=== PATIENT | male | born 1985 | race Caucasian/White ===

== ENCOUNTER 2016-10-06 11:25 | Observation (INO) | payer BC ==
[2016-10-06] MEDS ORDERED: Ondansetron 4 MG/2 ML SDV IVPUSH ONE (11:41)
[2016-10-06] MEDS ORDERED: Sodium Chloride 0.9% 1,000 ML IV ONE (11:41)
--- NOTE | 2016-10-06 12:22 | EDM.PDOC ---
ED HPI GENERAL MEDICAL PROBLEM - General Chief Complaint: Gastrointestinal Problem Stated Complaint: ABDOMINAL PAIN Time Seen by Provider: 10/06/16 12:07 Source of Information: Reports: Patient History Limitations: Reports: No Limitations - History of Present Illness INITIAL COMMENTS - FREE TEXT/NARRATIVE: History of present illness: [31-year-old male presents with complaints of abdominal tenderness and diarrhea for the last 3 days. Patient states he was seen in clinic today and they indicated they could not help him and that he needed to come here to be evaluated. Patient also states upon questioning that he does drink every weekend approximately 2 cases of beer and he has been doing them for 10 years.] Review of systems: As per history of present illness and below otherwise all systems reviewed and negative. Past medical history: As per history of present illness and as reviewed below otherwise noncontributory. Surgical history: As per history of present illness and as reviewed below otherwise noncontributory. Social history: No reported history of drug or alcohol abuse. Family history: As per history of present illness and as reviewed below otherwise noncontributory. Physical exam: HEENT: Atraumatic, normocephalic, pupils reactive, negative for conjunctival pallor or scleral icterus, mucous membranes moist, throat clear, neck supple, nontender, trachea midline. Lungs: Clear to auscultation, breath sounds equal bilaterally, chest nontender. Heart: S1S2, regular, negative for clicks, rubs, or JVD. Abdomen: Soft, nondistended, diffuse nonspecific tenderness throughout all recent abdomen Negative for masses or hepatosplenomegaly. Negative for costovertebral tenderness. Pelvis: Stable nontender. Genitourinary: Deferred. Rectal: Deferred. Extremities: Atraumatic, negative for cords or calf pain. Neurovascular unremarkable. Neuro: Awake, alert, oriented. Cranial nerves II through XII unremarkable. Cerebellum unremarkable. Motor and sensory unremarkable throughout. Exam nonfocal. Patient gave history clearly, was non tremulous, has stable vital signs without tachycardia and denied ever having a history of any adverse reaction during the week when he didn't drink. Patient acknowledges binge drinking only on the weekends and sometimes to the level that he will black out. Patient indicates that he has having diarrhea hourly and that it is quite painful and he bears down to evacuate. Patient provided a sample while here in the ER and it was primarily moon blood. Rectal exam performed no obvious external hemorrhoids on visualization and no hemorrhoids appreciated on palpation. Due to patient's continued stooling of blood discussed the case with Dr. Kruger and she indicated that since he is H&H was stable and he was hemostatically stable she would consult on him but to discuss admission to the hospitalist service. Dr. Deleon called and he accepted patient to his service. Diagnostics: [CBC, CMP, type and screen, culture stool] Therapeutics: [IV fluid] Impression: [GI bleed] Plan: [Admit] Definitive disposition and diagnosis as appropriate pending reevaluation and review of above. Bilateral Lower Abdomen Pain Score (Numeric/FACES): 8 - Related Data Allergies Allergy/AdvReac Type Severity Reaction Status Date / Time No Known Allergies Allergy Verified 10/06/16 11:58 Home Meds: Home Meds . [No Known Home Meds] 10/06/16 [History] ED ROS GENERAL - Review of Systems Review Of Systems: See Below (See history of present illness) ED EXAM, GI/ABD - Physical Exam Exam: See Below (See history of present illness) Course - Vital Signs Last Recorded V/S: Last Vital Signs Temp 37.1 C 10/06/16 14:10 Pulse 89 10/06/16 14:10 Resp 18 10/06/16 13:01 BP 118/56 L 10/06/16 14:10 Pulse Ox 93 L 10/06/16 14:10 - Orders/Labs/Meds Orders: Active Orders 24 hr Category Date Time Status CULTURE STOOL + CAMPY+SHIGATOX [RM] Stat Lab 10/06/16 11:45 Received Labs: Laboratory Tests 10/06/16 10/06/16 10/06/16 Range/Units 11:51 11:51 11:51 WBC 11.44 H (4.0-11.0) K/uL RBC 5.57 (4.50-5.90) M/uL Hgb 16.9 (13.0-17.0) g/dL Hct 48.2 (38.0-50.0) % MCV 86.5 (80.0-98.0) fL MCH 30.3 (27.0-32.0) pg MCHC 35.1 (31.0-37.0) g/dL RDW Std Deviation 41.8 (28.0-62.0) fl RDW Coeff of Saad 13 (11.0-15.0) % Plt Count 200 (150-400) K/uL MPV 10.30 (7.40-12.00) fL Neut % (Auto) 81.8 H (48.0-80.0) % Lymph % (Auto) 10.2 L (16.0-40.0) % Ross % (Auto) 7.7 (0.0-15.0) % Eos % (Auto) 0.0 (0.0-7.0) % Baso % (Auto) 0.3 (0.0-1.5) % Neut # (Auto) 9.4 H (1.4-5.7) K/uL Lymph # (Auto) 1.2 (0.6-2.4) K/uL Ross # (Auto) 0.9 H (0.0-0.8) K/uL Eos # (Auto) 0.0 (0.0-0.7) K/uL Baso # (Auto) 0.0 (0.0-0.1) K/uL Nucleated RBC % 0.0 /100WBC Nucleated RBCs # 0 K/uL Sodium 133 L (136-146) mmol/L Potassium 3.9 (3.5-5.1) mmol/L Chloride 99 (98-110) mmol/L Carbon Dioxide 21 (21-31) mmol/L BUN 8 (6.0-23.0) mg/dL Creatinine 1.0 (0.6-1.5) mg/dL Est Cr Clr Drug Dosing TNP Estimated GFR (MDRD) > 60.0 ml/min Glucose 122 H (60-110) mg/dL Calcium 9.1 (8.8-10.8) mg/dL Total Bilirubin 0.5 (0.1-1.5) mg/dL AST 22 (5-40) IU/L ALT 26 (8-54) IU/L Alkaline Phosphatase 62 (40-150) Total Protein 7.6 (6.0-8.0) g/dL Albumin 4.5 (3.5-5.0) g/dL Globulin 3.1 (2.0-3.5) g/dL Albumin/Globulin Ratio 1.5 (1.3-2.8) Amylase (10-90) U/L Lipase (7-80) U/L Blood Type A POSITIVE Antibody Screen NEGATIVE 10/06/16 Range/Units 11:51 WBC (4.0-11.0) K/uL RBC (4.50-5.90) M/uL Hgb (13.0-17.0) g/dL Hct (38.0-50.0) % MCV (80.0-98.0) fL MCH (27.0-32.0) pg MCHC (31.0-37.0) g/dL RDW Std Deviation (28.0-62.0) fl RDW Coeff of Saad (11.0-15.0) % Plt Count (150-400) K/uL MPV (7.40-12.00) fL Neut % (Auto) (48.0-80.0) % Lymph % (Auto) (16.0-40.0) % Ross % (Auto) (0.0-15.0) % Eos % (Auto) (0.0-7.0) % Baso % (Auto) (0.0-1.5) % Neut # (Auto) (1.4-5.7) K/uL Lymph # (Auto) (0.6-2.4) K/uL Ross # (Auto) (0.0-0.8) K/uL Eos # (Auto) (0.0-0.7) K/uL Baso # (Auto) (0.0-0.1) K/uL Nucleated RBC % /100WBC Nucleated RBCs # K/uL Sodium (136-146) mmol/L Potassium (3.5-5.1) mmol/L Chloride (98-110) mmol/L Carbon Dioxide (21-31) mmol/L BUN (6.0-23.0) mg/dL Creatinine (0.6-1.5) mg/dL Est Cr Clr Drug Dosing Estimated GFR (MDRD) ml/min Glucose (60-110) mg/dL Calcium (8.8-10.8) mg/dL Total Bilirubin (0.1-1.5) mg/dL AST (5-40) IU/L ALT (8-54) IU/L Alkaline Phosphatase (40-150) Total Protein (6.0-8.0) g/dL Albumin (3.5-5.0) g/dL Globulin (2.0-3.5) g/dL Albumin/Globulin Ratio (1.3-2.8) Amylase 34 (10-90) U/L Lipase < 8 (7-80) U/L Blood Type Antibody Screen Meds: Medications Discontinued Medications Generic Name Dose Route Start Last Admin Trade Name Orenq PRN Reason Stop Dose Admin Sodium Chloride 1,000 mls @ 999 mls/hr 10/06/16 11:41 10/06/16 12:15 Normal Saline IV 10/06/16 12:41 999 mls/hr STAT ONE Administration Iopamidol 100 ml 10/06/16 13:19 10/06/16 13:20 Isovue Multipack-370 (76%) IVPUSH 10/06/16 13:20 100 ml ONETIME STA Administration Ondansetron HCl 8 mg 10/06/16 11:41 10/06/16 12:16 Zofran IVPUSH 10/06/16 11:42 8 mg ONETIME ONE Administration Departure - Departure Time of Disposition: 15:19 Disposition: Admitted As Inpatient 66 Condition: Good Clinical Impression: Rectal bleed - Discharge Information Referrals: PCP,None [Primary Care Provider] - Forms: ED Department Discharge - My Orders Last 24 Hours: My Active Orders 10/06/16 11:45 CULTURE STOOL + CAMPY+SHIGATOX [RM] Stat - Assessment/Plan Last 24 Hours: My Active Orders 10/06/16 11:45 CULTURE STOOL + CAMPY+SHIGATOX [RM] Stat
[2016-10-06 12:27] LABS: CHLORIDE,CL 99 mmol/L (98-110); SODIUM,NA 133 mmol/L (136-146)
[2016-10-06] MEDS ORDERED: Iopamidol 755 MG/ML 500 ML Multipack Bottle IVPUSH STA (13:19)
--- NOTE | 2016-10-06 14:01 | CT ---
CT of the abdomen and pelvis with contrast. HISTORY: Pain TECHNIQUE: Axial CT images were obtained of the abdomen and pelvis following administration of 100 m L of Isovue-370 in the right antecubital fossa without complication. Coronal and sagittal reconstruc tions obtained. FINDINGS: There is a centrally calcified granuloma within the left lung base. No pleural effusion. There is a 1.4 cm hypodensity within the dome of the liver within eccentric hyperdense component lik nori representing peripheral enhancement. There is also a second tiny hypodensity within the left hep atic lobe measuring 6 mm. Intrarenal glands, spleen, and pancreas appear normal. The gallbladder is unremarkable. Nonpathologically enlarged retroperitoneal lymph nodes noted. The kidneys enhance and function symmetrically without evidence of obstructive uropathy. The large a nd small bowel appear normal in caliber without evidence of obstruction. There is possible mild rect al wall thickening with a trace free pelvic fluid. The urinary bladder appears normal. The appendix appears grossly unremarkable. No bulky pelvic lymphadenopathy. No suspicious osseous abnormalities identified. IMPRESSION: 1. Possible mild rectal wall thickening with a trace free pelvic fluid. 2. Otherwise no acute findings within the abdomen or pelvis. 3. Calcified granuloma within the left lung base.
[2016-10-06] MEDS ORDERED: Ondansetron 4 MG/2 ML SDV IVPUSH PRN (15:44)
--- NOTE | 2016-10-06 16:13 | PCM.HP ---
H&P History of Present Illness - General Date of Service: 10/06/16 Admit Problem/Dx: Rectal bleeding and abdominal pain Source of Information: Patient History Limitations: Reports: No Limitations - History of Present Illness Initial Comments - Free Text/Narative: This 31 year old otherwise helathy male, presented to the ED with complaints of lower abdominal and rectal pain with bloody stools. He reports on Tuesday evening he ate [employer] around 7pm and by 9 pm he had lower abdominal pain and diarrhea. He reports this continued and progressively worsened until today when the bloody stools started. He feels like he constantly needing to have BMs and feels as though his anus and rectum are very swollen. he has no relieving or aggravating factors. He denies recent bowel habit changes. He denies inserting any foreign objects into his rectum. No family history of rectal or colon cancers that is he aware of, no history of IBS, IBS diseases either. He has never had this issue before. He denies chest pain, SOB or palpitations, no urinary symptoms or fevers at home. He does heavily binge drink on weekends, anywhere from 18-25 beers daily. He smokes 1 ppk and denies recreational drug use. He has not recently been outside of the [place] traveling, no antibiotics use and no questionable food ingested. In the ED, WBC 11,440 Hgb 16.9, Na 133, VS stable HR 80-90 BP 120-140/50-80. Campylobacter negative, cdiff pending. CT reported possible mild rectal wall thickening with trace free pelvic fluid, otherwise no other acute findings with the abdomen or pelvis. Bilateral Lower Abdomen Pain Score (Numeric/FACES): 8 - Related Data Allergies/Adverse Reactions: Allergies Allergy/AdvReac Type Severity Reaction Status Date / Time No Known Allergies Allergy Verified 10/06/16 11:58 Home Medications: Home Meds . [No Known Home Meds] 10/06/16 [History] Past Medical History Cardiovascular History: Reports: None. Denies: Blood Clots/VTE/DVT, High Cholesterol, Hypertension, [place] Respiratory History: Reports: None. Denies: Asthma, COPD, PE Gastrointestinal History: Reports: None. Denies: Gastritis, GI Bleed, Hemorrhoids, Inflammatory Bowel Disease, Irritable Bowel Syndrome Genitourinary History: Reports: None. Denies: Chronic Renal Insuffiency Musculoskeletal History: Reports: None Neurological History: Reports: None. Denies: CVA, Headaches, Chronic, TIA Psychiatric History: Reports: None Endocrine/Metabolic History: Reports: None. 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) Oncologic (Cancer) History: Reports: None Dermatologic History: Reports: None - Infectious Disease History Infectious Disease History: Reports: None - Past Surgical History HEENT Surgical History: Reports: Other (See Below) Other HEENT Surgeries/Procedures: wisdom teeth GI Surgical History: Reports: None Endocrine Surgical History: Reports: Other (See Below) Other Endocrine Surgeries/Procedures: had numerous lymph nodes removed surgically Neurological Surgical History: Reports: None Social & Family History - Family History Family Medical History: Noncontributory - Tobacco Use Smoking Status *Q: Current Every Day Smoker Years of Tobacco use: 10 Packs/Tins Daily: 1 - Alcohol Use Alcohol Use History: Yes Days Per Week of Alcohol Use: 3 Number of Drinks Per Day: 10 Total Drinks Per Week: 30 Alcohol Use Frequency: Binges - Recreational Drug Use Recreational Drug Use: No H&P Review of Systems - Review of Systems: Review Of Systems: See Below General: Reports: No Symptoms. Denies: Fever, Chills, Malaise HEENT: Reports: No Symptoms. Denies: Headaches, Sinus Congestion, Sore Throat Pulmonary: Reports: No Symptoms. Denies: Shortness of Breath, Pleuritic Chest Pain, Cough, Sputum Cardiovascular: Reports: No Symptoms. Denies: Chest Pain, Palpitations, Dyspnea on Exertion, Edema Gastrointestinal: Reports: Abdominal Pain (lower abdomen), Bloody Stool, Diarrhea, Melena, Nausea, Other (rectal pain) Genitourinary: Reports: No Symptoms. Denies: Dysuria, Frequency, Burning, Pain Musculoskeletal: Reports: No Symptoms Skin: Reports: No Symptoms Psychiatric: Reports: No Symptoms Neurological: Reports: No Symptoms Hematologic/Lymphatic: Reports: No Symptoms Immunologic: Reports: No Symptoms Exam - Exam Exam: See Below - Vital Signs Vital Signs: Last Vital Signs Temp 97.1 F 10/06/16 15:43 Pulse 85 10/06/16 15:43 Resp 18 10/06/16 15:43 BP 155/80 H 10/06/16 15:43 Pulse Ox 96 10/06/16 15:43 Weight: 70.307 kg - Exam General: Alert, Oriented, Cooperative HEENT: Conjunctiva Clear. No: Mucosa Moist & [place] (slightly dry in appearance) Neck: Supple, Trachea Midline, 2 Lungs: Clear to Auscultation, Normal Respiratory Effort Cardiovascular: Regular Rate, Regular Rhythm, Normal S1, Normal S2 Abdomen: Normal Bowel Sounds, Tenderness (lower abdomen bilaterally). No: Distention, Guarding, Rigidity, Mass Rectal (Males) Exam: Bloody Stool, Heme + Stool, Tenderness. No: Hemorrhoids, Mass, Rectal Fissure Extremities: Normal Inspection, Normal Pulses Neuro Extensive - Mental Status: Alert, Oriented x3 Neuro Extensive - Motor, Sensory, Reflexes: CN II-XII Intact Psychiatric: Alert, Normal Affect, Normal Mood - Patient Data Result Diagrams: 10/06/16 11:51 10/06/16 11:51 *Q Meaningful Use (ADM) - VTE *Q VTE Criteria *Q: - VTE Risk Assess *Q Each Risk Factor Represents 1 Point: None Total Score 1 Point Risk Factors: 0 Each Risk Factor Represents 2 Points: None Total Score 2 Point Risk Factors: 0 Each Risk Factor Represents 3 Points: None Total Score 3 Point Risk Factors: 0 Each Risk Factor Represents 5 Points: None Total Score 5 Point Risk Factors: 0 Venous Thromboembolism Risk Factor Score *Q: 0 - Stroke *Q Stroke Criteria *Q: - AMI *Q AMI Criteria *Q: - Problem List (1) Rectal bleed SNOMED Code(s): 26403327 ICD Code: K62.5 - HEMORRHAGE OF ANUS AND RECTUM Status: Acute Current Visit: Yes (2) Proctitis SNOMED Code(s): 0642379 ICD Code: K62.89 - OTHER SPECIFIED DISEASES OF ANUS AND RECTUM Status: Acute Current Visit: Yes Problem List Initiated/Reviewed/Updated: Yes Orders Last 24hrs: Active Orders 24 hr Category Date Time Status Antiembolic Devices [RC] PER UNIT ROUTINE Care 10/06/16 15:44 Active Fecal Occult Blood Collection [RC] ASDIRECTED Care 10/06/16 15:44 Active Intake and Output [RC] QSHIFT Care 10/06/16 15:43 Active Oxygen Therapy [RC] PRN Care 10/06/16 15:43 Active Up With Assistance [RC] ASDIRECTED Care 10/06/16 15:43 Active VTE/DVT Education [RC] PER UNIT ROUTINE Care 10/06/16 15:43 Active Vital Signs [RC] Q4H Care 10/06/16 15:43 Active Nothing per Oral Now Diet [DIET] Diet 10/06/16 Dinner Active BASIC METABOLIC PANEL,BMP [CHEM] AM Lab 10/07/16 05:11 Ordered CBC WITH AUTO DIFF [HEME] AM Lab 10/07/16 05:11 Ordered CBC WITH AUTO DIFF [HEME] AM Lab 10/08/16 05:11 Ordered CBC WITH AUTO DIFF [HEME] AM Lab 10/09/16 05:11 Ordered CDIFF TOX A+B [OP] Routine Lab 10/06/16 11:45 Received OCCULT BLOOD DIAGNOSTIC [OP] Routine Lab 10/06/16 11:45 Received Morphine Med 10/06/16 15:43 Active 2 mg IVPUSH Q2H PRN Ondansetron [Zofran] Med 10/06/16 15:44 Active 4 mg IVPUSH Q4H PRN Sodium Chloride 0.9% [Normal Saline] 1,000 ml Med 10/06/16 15:45 Active IV ASDIRECTED Sequential Compression Device [OM.PC] Per Unit Routine Oth 10/06/16 15:43 Ordered Resuscitation Status Routine Resus Stat 10/06/16 15:43 Ordered Medication Orders Sodium Chloride (Normal Saline) 1,000 mls @ 125 mls/hr IV ASDIRECTED LARISA Morphine Sulfate (Morphine) 2 mg IVPUSH Q2H PRN PRN Reason: Pain (severe 7-10) Ondansetron HCl (Zofran) 4 mg IVPUSH Q4H PRN PRN Reason: Nausea Assessment/Plan Comment:: This 31 year old male admitted with rectal bleeding and pain 1. Rectal bleeding and pain: Stool studies pending, campylobacter and Cdiff negative. Heme positive. Consult to Dr. Kruger, I appreciate her assistance. Consider proctitis. Will start Mesalamine rectal enema tonight for inflammation and monitor. Monitor HH in am as well as progress overnight with urgency and frequency of stools and bleeding. Consider flare of undiagnosed ulcerative colitis or Crohn's. IVFs overnight. Dr. Kruger recommends Zosyn in light of possible infectious inflammation. VTE prophylaxis: SCDs Dispo: pending improvement.
[2016-10-06] MEDS: Sodium Chloride 0.9% 1,000 ML IV SCH (16:32)
[2016-10-06] MEDS: Morphine 2 MG/ML Syringe IVPUSH PRN ×3 (16:33→23:10)
--- NOTE | 2016-10-06 17:34 | PCM.CONS ---
H&P History of Present Illness - General Date of Service: 10/06/16 Admit Problem/Dx: Rectal bleeding and abdominal pain Source of Information: Patient History Limitations: Reports: No Limitations - History of Present Illness Initial Comments - Free Text/Narative: Patient is a 31 yo male who developed diarrhea and tenesmus 2 days ago. This continued and became more bloody. The patient started having multiple bloody bowel movements today and presented to the ER. He denies infectious contacts, anal sex, or previous episodes of bloody bowel movements. He denies fevers, chills, nausea, vomiting, abdominal pain, changes in weight, lymphadenopathy, changes in urination, or dizziness. He denies any family history of autoimmune diseases, colon cancer or inflammatory bowel disease. Bilateral Lower Abdomen Pain Score (Numeric/FACES): 8 - Related Data Allergies/Adverse Reactions: Allergies Allergy/AdvReac Type Severity Reaction Status Date / Time No Known Allergies Allergy Verified 10/06/16 11:58 Home Medications: Home Meds . 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) Oncologic (Cancer) History: Reports: None Dermatologic History: Reports: None - Infectious Disease History Infectious Disease History: Reports: None - Past Surgical History HEENT Surgical History: Reports: Other (See Below) Other HEENT Surgeries/Procedures: wisdom teeth GI Surgical History: Reports: None Endocrine Surgical History: Reports: Other (See Below) Other Endocrine Surgeries/Procedures: had numerous lymph nodes removed surgically Neurological Surgical History: Reports: None Other Dermatological Surgeries/Procedures: Lipoma removal Social & Family History - Family History Family Medical History: Noncontributory - Tobacco Use Smoking Status *Q: Current Every Day Smoker Years of Tobacco use: 10 Packs/Tins Daily: 1 - Alcohol Use Days Per Week of Alcohol Use: 3 Number of Drinks Per Day: 10 Total Drinks Per Week: 30 - Recreational Drug Use Recreational Drug Use: No H&P Review of Systems - Review of Systems: Review Of Systems: See Below General: Reports: Weakness, Fatigue. Denies: Fever, Chills, Decreased Appetite , Weight Loss, Weight Gain HEENT: Reports: No Symptoms Pulmonary: Reports: No Symptoms Cardiovascular: Reports: No Symptoms Gastrointestinal: Reports: Bloody Stool, Diarrhea, Hematochezia. Denies: Abdominal Pain, Anorexia, Constipation, Decreased Appetite, Distension, Flatus, Nausea, Stool Incontinence, Vomiting Genitourinary: Reports: No Symptoms Musculoskeletal: Reports: No Symptoms Skin: Reports: Lumps (lipomas (multiple)) Psychiatric: Reports: No Symptoms Neurological: Reports: No Symptoms Hematologic/Lymphatic: Reports: No Symptoms Exam - Exam Exam: See Below - Vital Signs Vital Signs: Last Vital Signs Temp 37.2 C 10/06/16 16:00 Pulse 94 10/06/16 16:00 Resp 18 10/06/16 16:00 BP 128/67 10/06/16 16:00 Pulse Ox 94 L 10/06/16 17:18 Weight: 69.57 kg - Exam General: Alert, Oriented HEENT: Conjunctiva Clear, EACs Clear, Mucosa Moist & [place], Pupils Equal, Pupils Reactive Neck: Supple Lungs: Clear to Auscultation, Normal Respiratory Effort Cardiovascular: Regular Rate, Regular Rhythm Abdomen: Soft. No: Distention, Guarding, Rigidity, Rebound, Tenderness Rectal (Males) Exam: Normal Rectal Tone, Prostate Normal, Bloody Stool, Tenderness. No: Hemorrhoids, Mass, Perirectal Abscess, Rectal Fissure Back Exam: Normal Inspection Extremities: Normal Inspection Skin: Warm, Dry, Intact Neuro Extensive - Mental Status: Alert, Oriented x3 Psychiatric: Alert, Normal Affect, Normal Mood - Patient Data Result Diagrams: 10/06/16 11:51 10/06/16 11:51 Consult PN Assessment/Plan (1) Proctitis SNOMED Code(s): 4961624 Code(s): K62.89 - OTHER SPECIFIED DISEASES OF ANUS AND RECTUM Current Visit : Yes (2) Rectal bleed SNOMED Code(s): 87959114 Code(s): K62.5 - HEMORRHAGE OF ANUS AND RECTUM Current Visit: Yes Problem List Initiated/Reviewed/Updated: Yes Plan: The patient has proctitis. The etiology is unknown. Possible causes include infectious or inflammatory. Patient will be started on zosyn to cover any infectious causes. Will await stool cultures. Will start 5-ASA enemas for possible inflammatory cause. Ok for patient to eat at this point in time. Continue with IVF resuscitation. If heme/hct stable and WBC decreased in the morning can be discharged. If no improvement will plan on in house sigmoidoscopy
[2016-10-06] MEDS: Piperacillin/Tazobactam 3.375 GM in Sodium Chloride 0.9% 50 ML IV SCH ×2 (18:00→23:06)
[2016-10-06] MEDS: oxyCODONE 5 MG Tab PO PRN ×2 (19:06→23:07)
[2016-10-06] MEDS ORDERED: Mesalamine Rectal Enema Susp 4 GM/60 ML Bottle RECTAL SCH (21:00)
[2016-10-06] MEDS ORDERED: CANASA RECTAL SCH (21:00)
[2016-10-07] MEDS: Sodium Chloride 0.9% 1,000 ML IV SCH ×3 (01:50→21:47)
[2016-10-07] MEDS: oxyCODONE 5 MG Tab PO PRN ×5 (04:28→22:04)
[2016-10-07] MEDS: Piperacillin/Tazobactam 3.375 GM in Sodium Chloride 0.9% 50 ML IV SCH ×4 (04:39→23:16)
[2016-10-07 05:20] LABS: CHLORIDE,CL 104 mmol/L (98-110); SODIUM,NA 135 mmol/L (136-146)
[2016-10-07] MEDS ORDERED: CANASA SCH (09:10)
--- NOTE | 2016-10-07 09:21 | PCM.PN ---
- General Info Date of Service: 10/07/16 Admission Dx/Problem (Free Text): Rectal bleeding and abdominal pain Subjective Update: Patient in bed, just returned from the bathroom, continues to have bloody bowel movements. Pain is controlled with medication, but once medication wears off he has severe rectal pain and lower abdominal pain. He denies subjective fevers, chest pain or SOB. Mother is at bedside and updated on treatment plan. Functional Status: Reports: pain controlled, tolerating diet, ambulating, urinating - Review of Systems General: Reports: No Symptoms. Denies: Fever, Weakness, Fatigue Pulmonary: Reports: no symptoms. Denies: shortness of breath, cough, sputum Cardiovascular: Reports: No Symptoms. Denies: Chest Pain, Palpitations, Edema Gastrointestinal: Reports: Abdominal pain (lower abdomen into pelvis), Diarrhea (with bloody bowel movements.). Denies: Nausea, Vomiting Genitourinary: Reports: no symptoms. Denies: dysuria, frequency, burning Musculoskeletal: Reports: no symptoms Skin: Reports: no symptoms Neurological: Reports: No Symptoms Psychiatric: Reports: no symptoms - Patient Data Vitals - most recent: Last Vital Signs Temp 97.9 F 10/07/16 07:58 Pulse 71 10/07/16 07:58 Resp 22 H 10/07/16 07:58 BP 131/65 10/07/16 07:58 Pulse Ox 94 L 10/07/16 07:58 Weight - most recent: 69.57 kg I&O - last 24 hours: Intake & Output 10/06/16 10/07/16 10/07/16 22:59 06:59 14:59 Intake Total 250 2600 Balance 250 2600 Lab Results last 24 hrs: Laboratory Results - last 24 hr 10/07/16 10/07/16 Range/Units 04:23 04:23 WBC 8.28 (4.0-11.0) K/uL RBC 5.24 (4.50-5.90) M/uL Hgb 15.4 (13.0-17.0) g/dL Hct 45.7 (38.0-50.0) % MCV 87.2 (80.0-98.0) fL MCH 29.4 (27.0-32.0) pg MCHC 33.7 (31.0-37.0) g/dL RDW Std Deviation 42.3 (28.0-62.0) fl RDW Coeff of Saad 13 (11.0-15.0) % Plt Count 186 (150-400) K/uL MPV 10.80 (7.40-12.00) fL Neut % (Auto) 68.7 (48.0-80.0) % Lymph % (Auto) 16.5 (16.0-40.0) % [place] % (Auto) 13.8 (0.0-15.0) % Eos % (Auto) 0.6 (0.0-7.0) % Baso % (Auto) 0.4 (0.0-1.5) % Neut # (Auto) 5.7 (1.4-5.7) K/uL Lymph # (Auto) 1.4 (0.6-2.4) K/uL [place] # (Auto) 1.1 H (0.0-0.8) K/uL Eos # (Auto) 0.1 (0.0-0.7) K/uL Baso # (Auto) 0.0 (0.0-0.1) K/uL Nucleated RBC % 1.0 /100WBC Nucleated RBCs # 0 K/uL Sodium 135 L (136-146) mmol/L Potassium 4.2 (3.5-5.1) mmol/L Chloride 104 (98-110) mmol/L Carbon Dioxide 20 L (21-31) mmol/L BUN 9 (6.0-23.0) mg/dL Creatinine 0.9 (0.6-1.5) mg/dL Est Cr Clr Drug Dosing 117.02 mL/min Estimated GFR (MDRD) > 60.0 ml/min Glucose 113 H (60-110) mg/dL Calcium 8.5 L (8.8-10.8) mg/dL Med Orders - Current: Current Medications Bisacodyl (Dulcolax) 20 mg PO ONETIME ONE Stop: 10/08/16 13:01 Sodium Chloride (Normal Saline) 1,000 mls @ 125 mls/hr IV ASDIRECTED LARISA Last Admin: 10/07/16 01:50 Dose: 125 mls/hr Piperacillin Sod/Tazobactam (Sod 3.375 gm/ Sodium Chloride) 50 mls @ 100 mls/ hr IV Q6H [facility] Last Admin: 10/07/16 04:39 Dose: 100 mls/hr Morphine Sulfate (Morphine) 2 mg IVPUSH Q2H PRN PRN Reason: Pain (severe 7-10) Last Admin: 10/06/16 23:10 Dose: 2 mg Canasa (Mesalamine (Suppository) 1000mg) 1 each .XX BEDTIME L[facility]ISA Ondansetron HCl (Zofran) 4 mg IVPUSH Q4H PRN PRN Reason: Nausea Last Admin: 10/06/16 20:37 Dose: 4 mg Oxycodone HCl (Oxycodone) 10 mg PO Q4H PRN PRN Reason: Pain Last Admin: 10/07/16 04:28 Dose: 10 mg Polyethylene Glycol (Miralax) 119 gm PO ONETIME ONE Stop: 10/07/16 18:01 Polyethylene Glycol (Miralax) 119 gm PO ONETIME ONE Stop: 10/08/16 15:01 Discontinued Medications Sodium Chloride (Normal Saline) 1,000 mls @ 999 mls/hr IV STAT ONE Stop: 10/06/16 12:41 Last Admin: 10/06/16 12:15 Dose: 999 mls/hr Iopamidol (Isovue Multipack-370 (76%)) 100 ml IVPUSH ONETIME STA Stop: 10/06/16 13:20 Last Admin: 10/06/16 13:20 Dose: 100 ml Mesalamine (Rowasa) 4 gm RECTAL BEDTIME LARISA Ondansetron HCl (Zofran) 8 mg IVPUSH ONETIME ONE Stop: 10/06/16 11:42 Last Admin: 10/06/16 12:16 Dose: 8 mg Oxycodone HCl (Oxycodone) 5 mg PO Q4H PRN PRN Reason: Pain Last Admin: 10/06/16 23:07 Dose: 5 mg Canasa (Mesalamine (Suppository) 1000mg) 1 each RECTAL BEDTIME LARISA Last Admin: 10/06/16 21:25 Dose: 1 each - Exam General: alert, oriented, cooperative, no acute distress Lungs: Clear to auscultation, Normal respiratory effort Cardiovascular: Regular Rate, Regular Rhythm Abdomen: bowel sounds present, soft, tenderness (lower abdomen bilaterally). No : rigidity, rebound, distension Extremities: no edema, normal pulses Psy/Mental Status: alert, normal affect, normal mood - Problem List & Annotations (1) Rectal bleed SNOMED Code(s): 93104708 Code(s): K62.5 - HEMORRHAGE OF ANUS AND RECTUM Status: Acute Current Visit: Yes (2) Proctitis SNOMED Code(s): 8169783 Code(s): K62.89 - OTHER SPECIFIED DISEASES OF ANUS AND RECTUM Status: Acute Current Visit: Yes - Problem List Review Problem List Initiated/Reviewed/Updated: Yes - My Orders Last 24 Hours: My Active Orders 10/06/16 15:43 Intake and Output [RC] Q12H Oxygen Therapy [RC] PRN Up With Assistance [RC] ASDIRECTED VTE/DVT Education [RC] PER UNIT ROUTINE Vital Signs [RC] Q4H Morphine 2 mg IVPUSH Q2H PRN Sequential Compression Device [OM.PC] Per Unit Routine Resuscitation Status Routine 10/06/16 15:44 Antiembolic Devices [RC] PER UNIT ROUTINE Ondansetron [Zofran] 4 mg IVPUSH Q4H PRN 10/06/16 15:45 Sodium Chloride 0.9% [Normal Saline] 1,000 ml IV ASDIRECTED 10/06/16 17:00 Piperacillin/Tazobactam [Piperacil-Tazobact] 3.375 gm Sodium Chloride 0.9% [ Normal Saline] 50 ml IV Q6H 10/06/16 Dinner Regular Diet [DIET] 10/07/16 09:10 Non-Formulary Medication [NF Drug] 1 each .XX BEDTIME 10/07/16 18:00 Polyethylene Glycol 3350 [MiraLAX] 119 gm PO ONETIME ONE 10/07/16 Lunch Clear Liquid Diet [DIET] NPO After Midnight [Nothing per Oral After Midnight Diet] [DIET] 10/08/16 05:11 CBC WITH AUTO DIFF [HEME] AM 10/08/16 13:00 Bisacodyl [Dulcolax] 20 mg PO ONETIME ONE 10/08/16 15:00 Polyethylene Glycol 3350 [MiraLAX] 119 gm PO ONETIME ONE 10/09/16 05:11 CBC WITH AUTO DIFF [HEME] AM - Plan Plan:: This 31 year old male admitted with rectal bleeding and pain 1. Rectal bleeding and proctitis: Stool studies negative. Heme positive. Consult to Dr. Kruger, I appreciate her assistance. Mesalamine suppository started last evening, slight improvement in pain. Continues to have bloody BMs, hgb stable. Dr. Kruger will prep and complete colonoscopy tomorrow to further evaluate. Leukocytosis improved, 8,000 today, will continue Zosyn. CL diet starting now and to follow colon prep recommended by Dr. Kruger today. NPO after MN. Continue IVFs. VTE prophylaxis: SCDs Dispo: pending improvement.
[2016-10-07] MEDS ORDERED: Bisacodyl 5 MG Tab PO ONE (13:30)
--- NOTE | 2016-10-07 13:41 | PCM.SURGPN ---
- General Info Date of Service: 10/07/16 Functional Status: Reports: other (ABdominal pain has improved. Patient still having tenesmus and bloody bms. He is tolerating po intake. ) - Review of Systems General: Reports: No Symptoms HEENT: Reports: no symptoms Pulmonary: Reports: no symptoms Cardiovascular: Reports: No Symptoms Gastrointestinal: Reports: Abdominal pain, Diarrhea, Hematochezia Genitourinary: Reports: no symptoms Musculoskeletal: Reports: no symptoms - Patient Data Vitals - most recent: Last Vital Signs Temp 36.6 C 10/07/16 11:55 Pulse 71 10/07/16 11:55 Resp 20 10/07/16 11:55 BP 120/55 L 10/07/16 11:55 Pulse Ox 94 L 10/07/16 11:55 Weight - most recent: 69.57 kg I&O - last 24 hours: Intake & Output 10/06/16 10/07/16 10/07/16 22:59 06:59 14:59 Intake Total 250 2600 1000 Balance 250 2600 1000 Lab Results last 24 hrs: Laboratory Results - last 24 hr 10/07/16 10/07/16 Range/Units 04:23 04:23 WBC 8.28 (4.0-11.0) K/uL RBC 5.24 (4.50-5.90) M/uL Hgb 15.4 (13.0-17.0) g/dL Hct 45.7 (38.0-50.0) % MCV 87.2 (80.0-98.0) fL MCH 29.4 (27.0-32.0) pg MCHC 33.7 (31.0-37.0) g/dL RDW Std Deviation 42.3 (28.0-62.0) fl RDW Coeff of Saad 13 (11.0-15.0) % Plt Count 186 (150-400) K/uL MPV 10.80 (7.40-12.00) fL Neut % (Auto) 68.7 (48.0-80.0) % Lymph % (Auto) 16.5 (16.0-40.0) % [place] % (Auto) 13.8 (0.0-15.0) % Eos % (Auto) 0.6 (0.0-7.0) % Baso % (Auto) 0.4 (0.0-1.5) % Neut # (Auto) 5.7 (1.4-5.7) K/uL Lymph # (Auto) 1.4 (0.6-2.4) K/uL [place] # (Auto) 1.1 H (0.0-0.8) K/uL Eos # (Auto) 0.1 (0.0-0.7) K/uL Baso # (Auto) 0.0 (0.0-0.1) K/uL Nucleated RBC % 1.0 /100WBC Nucleated RBCs # 0 K/uL Sodium 135 L (136-146) mmol/L Potassium 4.2 (3.5-5.1) mmol/L Chloride 104 (98-110) mmol/L Carbon Dioxide 20 L (21-31) mmol/L BUN 9 (6.0-23.0) mg/dL Creatinine 0.9 (0.6-1.5) mg/dL Est Cr Clr Drug Dosing 117.02 mL/min Estimated GFR (MDRD) > 60.0 ml/min Glucose 113 H (60-110) mg/dL Calcium 8.5 L (8.8-10.8) mg/dL Med Orders - Current: Current Medications Sodium Chloride (Normal Saline) 1,000 mls @ 125 mls/hr IV ASDIRECTED [facility] Last Admin: 10/07/16 11:37 Dose: 125 mls/hr Piperacillin Sod/Tazobactam (Sod 3.375 gm/ Sodium Chloride) 50 mls @ 100 mls/ hr IV Q6H [facility] Last Admin: 10/07/16 10:03 Dose: 100 mls/hr Morphine Sulfate (Morphine) 2 mg IVPUSH Q2H PRN PRN Reason: Pain (severe 7-10) Last Admin: 10/06/16 23:10 Dose: 2 mg Canasa (Mesalamine (Suppository) 1000mg) 1 each .XX BEDTIME [facility] Ondansetron HCl (Zofran) 4 mg IVPUSH Q4H PRN PRN Reason: Nausea Last Admin: 10/06/16 20:37 Dose: 4 mg Oxycodone HCl (Oxycodone) 10 mg PO Q4H PRN PRN Reason: Pain Last Admin: 10/07/16 09:19 Dose: 10 mg Polyethylene Glycol (Miralax) 119 gm PO ONETIME ONE Stop: 10/07/16 18:01 Discontinued Medications Bisacodyl (Dulcolax) 20 mg PO ONETIME ONE Stop: 10/08/16 13:01 Bisacodyl (Dulcolax) 20 mg PO ONETIME ONE Stop: 10/07/16 13:31 Sodium Chloride (Normal Saline) 1,000 mls @ 999 mls/hr IV STAT ONE Stop: 10/06/16 12:41 Last Admin: 10/06/16 12:15 Dose: 999 mls/hr Iopamidol (Isovue Multipack-370 (76%)) 100 ml IVPUSH ONETIME STA Stop: 10/06/16 13:20 Last Admin: 10/06/16 13:20 Dose: 100 ml Mesalamine (Rowasa) 4 gm RECTAL BEDTIME LARISA Ondansetron HCl (Zofran) 8 mg IVPUSH ONETIME ONE Stop: 10/06/16 11:42 Last Admin: 10/06/16 12:16 Dose: 8 mg Oxycodone HCl (Oxycodone) 5 mg PO Q4H PRN PRN Reason: Pain Last Admin: 10/06/16 23:07 Dose: 5 mg Canasa (Mesalamine (Suppository) 1000mg) 1 each RECTAL BEDTIME LARISA Last Admin: 10/06/16 21:25 Dose: 1 each Polyethylene Glycol (Miralax) 119 gm PO ONETIME ONE Stop: 10/08/16 15:01 - Exam General: alert, oriented Lungs: Normal respiratory effort Cardiovascular: Regular Rate Abdomen: bowel sounds present, soft, no tenderness, no distension Extremities: no edema Skin: warm, dry, intact Neurological: no new focal deficit Psy/Mental Status: alert, normal affect, normal mood - Problem List & Annotations (1) Proctitis SNOMED Code(s): 2014423 Code(s): K62.89 - OTHER SPECIFIED DISEASES OF ANUS AND RECTUM Status: Acute Current Visit: Yes (2) Rectal bleed SNOMED Code(s): 31380990 Code(s): K62.5 - HEMORRHAGE OF ANUS AND RECTUM Status: Acute Current Visit: Yes - Problem List Review Problem List Initiated/Reviewed/Updated: Yes - My Orders Last 24 Hours: Active Orders 24 hr Category Date Time Status Antiembolic Devices [RC] PER UNIT ROUTINE Care 10/06/16 15:44 Active Intake and Output [RC] Q12H Care 10/06/16 15:43 Active Oxygen Therapy [RC] PRN Care 10/06/16 15:43 Active Up With Assistance [RC] ASDIRECTED Care 10/06/16 15:43 Active VTE/DVT Education [RC] PER UNIT ROUTINE Care 10/06/16 15:43 Active Vital Signs [RC] Q4H Care 10/06/16 15:43 Active Clear Liquid Diet [DIET] Diet 10/07/16 Lunch Active NPO After Midnight [Nothing per Oral After Midnight Diet 10/07/16 Lunch Active Diet] [DIET] CBC WITH AUTO DIFF [HEME] AM Lab 10/08/16 05:11 Ordered CBC WITH AUTO DIFF [HEME] AM Lab 10/09/16 05:11 Ordered Morphine Med 10/06/16 15:43 Active 2 mg IVPUSH Q2H PRN Non-Formulary Medication [NF Drug] Med 10/07/16 09:10 Active 1 each .XX BEDTIME Ondansetron [Zofran] Med 10/06/16 15:44 Active 4 mg IVPUSH Q4H PRN Piperacillin/Tazobactam [Piperacil-Tazobact] 3.375 gm Med 10/06/16 17:00 Active Sodium Chloride 0.9% [Normal Saline] 50 ml IV Q6H Polyethylene Glycol 3350 [MiraLAX] Med 10/07/16 18:00 Once 119 gm PO ONETIME ONE Sodium Chloride 0.9% [Normal Saline] 1,000 ml Med 10/06/16 15:45 Active IV ASDIRECTED oxyCODONE Med 10/07/16 02:21 Active 10 mg PO Q4H PRN Sequential Compression Device [OM.PC] Per Unit Routine Oth 10/06/16 15:43 Ordered Resuscitation Status Routine Resus Stat 10/06/16 15:43 Ordered Medication Orders Sodium Chloride (Normal Saline) 1,000 mls @ 125 mls/hr IV ASDIRECTED LARISA Last Admin: 10/07/16 11:37 Dose: 125 mls/hr Infusion: 10/07/16 09:50 Dose: 125 mls/hr Admin: 10/07/16 01:50 Dose: 125 mls/hr Infusion: 10/07/16 00:32 Dose: 125 mls/hr Admin: 10/06/16 16:32 Dose: 125 mls/hr Piperacillin Sod/Tazobactam (Sod 3.375 gm/ Sodium Chloride) 50 mls @ 100 mls/ hr IV Q6H LARISA Last Admin: 10/07/16 10:03 Dose: 100 mls/hr Infusion: 10/07/16 05:09 Dose: 100 mls/hr Admin: 10/07/16 04:39 Dose: 100 mls/hr Infusion: 10/06/16 23:36 Dose: 100 mls/hr Admin: 10/06/16 23:06 Dose: 100 mls/hr Infusion: 10/06/16 18:30 Dose: 100 mls/hr Admin: 10/06/16 18:00 Dose: 100 mls/hr Morphine Sulfate (Morphine) 2 mg IVPUSH Q2H PRN PRN Reason: Pain (severe 7-10) Last Admin: 10/06/16 23:10 Dose: 2 mg Admin: 10/06/16 20:37 Dose: 2 mg Admin: 10/06/16 16:33 Dose: 2 mg Canasa (Mesalamine (Suppository) 1000mg) 1 each .XX BEDTIME LARISA Ondansetron HCl (Zofran) 4 mg IVPUSH Q4H PRN PRN Reason: Nausea Last Admin: 10/06/16 20:37 Dose: 4 mg Oxycodone HCl (Oxycodone) 10 mg PO Q4H PRN PRN Reason: Pain Last Admin: 10/07/16 09:19 Dose: 10 mg Admin: 10/07/16 04:28 Dose: 10 mg Polyethylene Glycol (Miralax) 119 gm PO ONETIME ONE Stop: 10/07/16 18:01 - Assessment Assessment (Free Text/Narrative):: Stool cultures came back negative. Patients WBC is within normal limits. He continues to have tenesumus and hematochezia. Will have patient do a gentle prep today (2 dulcolax tabs and miralax with gatorade) and perform a flexible sigmoidoscopy with biopsy tomorrow. The patient and I discussed the procedure, expected keyshawn-operative course, and risks including bleeding, infection or perforation. The patient verbalizes understanding and wishes to proceed.
[2016-10-07] MEDS ORDERED: Polyethylene Glycol 3350 Powder 17 GM Packet PO ONE (18:00)
[2016-10-08] MEDS: Piperacillin/Tazobactam 3.375 GM in Sodium Chloride 0.9% 50 ML IV SCH ×3 (05:34→18:06)
[2016-10-08] MEDS: Sodium Chloride 0.9% 1,000 ML IV SCH (06:26)
--- NOTE | 2016-10-08 07:19 | PCM.PREANE ---
Preanesthetic Assessment - Procedure Proposed Procedure: Sigmoidoscopy - Anesthesia/Transfusion/Family Hx Anesthesia History: No Prior Anesthesia Family History of Anesthesia Reaction: No Intubation History: Unknown Additional History: EtOH ingestion limited to weekends - recreational meds denied. - Review of Systems General: No Symptoms Pulmonary: No Symptoms Cardiovascular: No Symptoms Gastrointestinal: Abdominal pain, Other (BRB per stool) Neurological: No Symptoms Other: Reports: None - Physical Assessment NPO Status Date: 10/07/16 NPO Status Time: 23:55 O2 Sat by Pulse Oximetry: 97 Respiratory Rate: 12 Vital Signs: Last Vital Signs Temp 98.7 F 10/08/16 04:00 Pulse 68 10/08/16 04:00 Resp 12 10/08/16 04:00 BP 118/61 10/08/16 04:00 Pulse Ox 97 10/08/16 04:00 Height: 5 ft 10 in Weight: 153 lb 6 oz ASA Class: 2 Mental Status: Alert & Oriented x3 Airway Class: Mallampati = 2 Dentition: Reports: Normal Dentition Thyro-Mental Finger Breadths: 2 Mouth Opening Finger Breadths: 3 ROM/Head Extension: Full Lungs: Clear to auscultation, Normal respiratory effort Cardiovascular: Regular Rate, Regular Rhythm, No Murmurs - Lab Values: Laboratory Last Values WBC 6.80 K/uL (4.0-11.0) 10/08/16 04:49 RBC 4.76 M/uL (4.50-5.90) 10/08/16 04:49 Hgb 13.9 g/dL (13.0-17.0) 10/08/16 04:49 Hct 41.2 % (38.0-50.0) 10/08/16 04:49 MCV 86.6 fL (80.0-98.0) 10/08/16 04:49 MCH 29.2 pg (27.0-32.0) 10/08/16 04:49 MCHC 33.7 g/dL (31.0-37.0) 10/08/16 04:49 RDW Std Deviation 41.8 fl (28.0-62.0) 10/08/16 04:49 RDW Coeff of Saad 13 % (11.0-15.0) 10/08/16 04:49 Plt Count 181 K/uL (150-400) 10/08/16 04:49 MPV 10.90 fL (7.40-12.00) 10/08/16 04:49 Neut % (Auto) 68.7 % (48.0-80.0) 10/07/16 04:23 Lymph % (Auto) 16.5 % (16.0-40.0) 10/07/16 04:23 [place] % (Auto) 13.8 % (0.0-15.0) 10/07/16 04:23 Eos % (Auto) 0.6 % (0.0-7.0) 10/07/16 04:23 Baso % (Auto) 0.4 % (0.0-1.5) 10/07/16 04:23 Neut # (Auto) 5.7 K/uL (1.4-5.7) 10/07/16 04:23 Lymph # (Auto) 1.4 K/uL (0.6-2.4) 10/07/16 04:23 [place] # (Auto) 1.1 K/uL (0.0-0.8) H 10/07/16 04:23 Eos # (Auto) 0.1 K/uL (0.0-0.7) 10/07/16 04:23 Baso # (Auto) 0.0 K/uL (0.0-0.1) 10/07/16 04:23 Add Manual Diff YES 10/08/16 04:49 Neutrophils % (Manual) 29 % (48.0-80.0) L 10/08/16 04:49 Band Neutrophils % 18 % 10/08/16 04:49 Lymphocytes % (Manual) 35 % (16.0-40.0) 10/08/16 04:49 Monocytes % (Manual) 13 % (0.0-15.0) 10/08/16 04:49 Eosinophils % (Manual) 4 % (0.0-7.0) 10/08/16 04:49 Basophils % (Manual) 1 % (0.0-1.5) 10/08/16 04:49 Nucleated RBC % 0.0 /100WBC 10/08/16 04:49 Absolute Seg Neuts 2.0 10/08/16 04:49 Band Neutrophils # 1.2 10/08/16 04:49 Lymphocytes # (Manual) 2.4 10/08/16 04:49 Monocytes # (Manual) 0.9 10/08/16 04:49 Eosinophils # (Manual) 0.3 10/08/16 04:49 Basophils # (Manual) 0 10/08/16 04:49 Nucleated RBCs # 0 K/uL 10/08/16 04:49 ESR 5 mm/hr (0-14) 10/06/16 11:51 Sodium 135 mmol/L (136-146) L 10/07/16 04:23 Potassium 4.2 mmol/L (3.5-5.1) 10/07/16 04:23 Chloride 104 mmol/L (98-110) 10/07/16 04:23 Carbon Dioxide 20 mmol/L (21-31) L 10/07/16 04:23 BUN 9 mg/dL (6.0-23.0) 10/07/16 04:23 Creatinine 0.9 mg/dL (0.6-1.5) 10/07/16 04:23 Est Cr Clr Drug Dosing 117.02 mL/min 10/07/16 04:23 Estimated GFR (MDRD) > 60.0 ml/min 10/07/16 04:23 Glucose 113 mg/dL (60-110) H 10/07/16 04:23 Calcium 8.5 mg/dL (8.8-10.8) L 10/07/16 04:23 Total Bilirubin 0.5 mg/dL (0.1-1.5) 10/06/16 11:51 AST 22 IU/L (5-40) 10/06/16 11:51 ALT 26 IU/L (8-54) 10/06/16 11:51 Alkaline Phosphatase 62 (40-150) 10/06/16 11:51 C-Reactive Protein 20.60 mg/dL (0.0-0.5) H 10/06/16 11:51 Total Protein 7.6 g/dL (6.0-8.0) 10/06/16 11:51 Albumin 4.5 g/dL (3.5-5.0) 10/06/16 11:51 Globulin 3.1 g/dL (2.0-3.5) 10/06/16 11:51 Albumin/Globulin Ratio 1.5 (1.3-2.8) 10/06/16 11:51 Amylase 34 U/L (10-90) 10/06/16 11:51 Lipase < 8 U/L (7-80) 10/06/16 11:51 Blood Type A POSITIVE 10/06/16 11:51 Antibody Screen NEGATIVE 10/06/16 11:51 - Allergies Allergies/Adverse Reactions: Allergies Allergy/AdvReac Type Severity Reaction Status Date / Time No Known Allergies Allergy Verified 10/06/16 11:58 - Blood Blood Available: No Product(s) Available: PRBC (T and S) - Anesthesia Plan Free Text/Narrative:: MAC - Acknowledgements Anesthesia Type Planned: MAC (May have pain meds PO and IV PRN since surgical time is not known) Pt an Appropriate Candidate for the Planned Anesthesia: Yes Alternatives and Risks of Anesthesia Discussed w Pt/Guardian: Yes Pt/Guardian Understands and Agrees with Anesthesia Plan: Yes PreAnesthesia Questionnaire Cardiovascular History: Reports: None Respiratory History: Reports: None Gastrointestinal History: Reports: None Genitourinary History: Reports: None Musculoskeletal History: Reports: None Neurological History: Reports: None Psychiatric History: Reports: None Endocrine/Metabolic History: Reports: None Hematologic History: Reports: None Other Immunologic History: ?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) Oncologic (Cancer) History: Reports: None Dermatologic History: Reports: None - Infectious Disease History Infectious Disease History: Reports: None - Past Surgical History HEENT Surgical History: Reports: Other (See Below) Other HEENT Surgeries/Procedures: wisdom teeth GI Surgical History: Reports: None Endocrine Surgical History: Reports: Other (See Below) Other Endocrine Surgeries/Procedures: had numerous lymph nodes removed surgically Neurological Surgical History: Reports: None Other Dermatological Surgeries/Procedures: Lipoma removal - SUBSTANCE USE Smoking Status *Q: Current Every Day Smoker Tobacco Use Within Last Twelve Months: Cigarettes Days Per Week of Alcohol Use: 3 Number of Drinks Per Day: 10 Total Drinks Per Week: 30 Recreational Drug Use History: No - HOME MEDS Home Medications: Home Meds . [No Known Home Meds] 10/06/16 [History] - CURRENT (IN HOUSE) MEDS Current Meds: Current Medications Sodium Chloride (Normal Saline) 1,000 mls @ 125 mls/hr IV ASDIRECTED LARISA Last Admin: 10/08/16 06:26 Dose: 125 mls/hr Piperacillin Sod/Tazobactam (Sod 3.375 gm/ Sodium Chloride) 50 mls @ 100 mls/ hr IV Q6H LARISA Last Infusion: 10/08/16 06:05 Dose: Infused Morphine Sulfate (Morphine) 2 mg IVPUSH Q2H PRN PRN Reason: Pain (severe 7-10) Last Admin: 10/06/16 23:10 Dose: 2 mg Canasa (Mesalamine (Suppository) 1000mg) 1 each .XX BEDTIME LARISA Last Admin: 10/07/16 22:07 Dose: 1 each Ondansetron HCl (Zofran) 4 mg IVPUSH Q4H PRN PRN Reason: Nausea Last Admin: 10/06/16 20:37 Dose: 4 mg Oxycodone HCl (Oxycodone) 10 mg PO Q4H PRN PRN Reason: Pain Last Admin: 10/07/16 22:04 Dose: 10 mg Discontinued Medications Bisacodyl (Dulcolax) 20 mg PO ONETIME ONE Stop: 10/08/16 13:01 Bisacodyl (Dulcolax) 20 mg PO ONETIME ONE Stop: 10/07/16 13:31 Last Admin: 10/07/16 13:42 Dose: 20 mg Sodium Chloride (Normal Saline) 1,000 mls @ 999 mls/hr IV STAT ONE Stop: 10/06/16 12:41 Last Admin: 10/06/16 12:15 Dose: 999 mls/hr Iopamidol (Isovue Multipack-370 (76%)) 100 ml IVPUSH ONETIME STA Stop: 10/06/16 13:20 Last Admin: 10/06/16 13:20 Dose: 100 ml Mesalamine (Rowasa) 4 gm RECTAL BEDTIME LARISA Ondansetron HCl (Zofran) 8 mg IVPUSH ONETIME ONE Stop: 10/06/16 11:42 Last Admin: 10/06/16 12:16 Dose: 8 mg Oxycodone HCl (Oxycodone) 5 mg PO Q4H PRN PRN Reason: Pain Last Admin: 10/06/16 23:07 Dose: 5 mg Canasa (Mesalamine (Suppository) 1000mg) 1 each RECTAL BEDTIME LARISA Last Admin: 10/06/16 21:25 Dose: 1 each Polyethylene Glycol (Miralax) 119 gm PO ONETIME ONE Stop: 10/07/16 18:01 Last Admin: 10/07/16 17:34 Dose: 119 gm Polyethylene Glycol (Miralax) 119 gm PO ONETIME ONE Stop: 10/08/16 15:01
--- NOTE | 2016-10-08 08:42 | PCM.PN ---
- General Info Date of Service: 10/08/16 Admission Dx/Problem (Free Text): Rectal bleeding and abdominal pain Subjective Update: feeling better today. No blood BMs over night. Denies chest pain or palpitations. Rectal pain continues, but is improved. Functional Status: Reports: pain controlled, tolerating diet, ambulating, urinating - Review of Systems General: Reports: No Symptoms. Denies: Fever Pulmonary: Reports: no symptoms. Denies: shortness of breath, cough, sputum Cardiovascular: Reports: No Symptoms. Denies: Chest Pain, Palpitations Gastrointestinal: Reports: Other (rectal pain). Denies: Abdominal pain, Nausea , Vomiting Genitourinary: Reports: no symptoms Musculoskeletal: Reports: no symptoms Skin: Reports: no symptoms Neurological: Reports: No Symptoms Psychiatric: Reports: no symptoms - Patient Data Vitals - most recent: Last Vital Signs Temp 98.3 F 10/08/16 07:41 Pulse 66 10/08/16 07:41 Resp 20 10/08/16 07:41 BP 113/65 10/08/16 07:41 Pulse Ox 95 10/08/16 07:41 Weight - most recent: 69.57 kg I&O - last 24 hours: Intake & Output 10/07/16 10/08/16 10/08/16 22:59 06:59 14:59 Intake Total 1050 550 Output Total 700 Balance 1050 -150 Lab Results last 24 hrs: Laboratory Results - last 24 hr 10/08/16 Range/Units 04:49 WBC 6.80 (4.0-11.0) K/uL RBC 4.76 (4.50-5.90) M/uL Hgb 13.9 (13.0-17.0) g/dL Hct 41.2 (38.0-50.0) % MCV 86.6 (80.0-98.0) fL MCH 29.2 (27.0-32.0) pg MCHC 33.7 (31.0-37.0) g/dL RDW Std Deviation 41.8 (28.0-62.0) fl RDW Coeff of Saad 13 (11.0-15.0) % Plt Count 181 (150-400) K/uL MPV 10.90 (7.40-12.00) fL Add Manual Diff YES Neutrophils % (Manual) 29 L (48.0-80.0) % Band Neutrophils % 18 % Lymphocytes % (Manual) 35 (16.0-40.0) % Monocytes % (Manual) 13 (0.0-15.0) % Eosinophils % (Manual) 4 (0.0-7.0) % Basophils % (Manual) 1 (0.0-1.5) % Nucleated RBC % 0.0 /100WBC Absolute Seg Neuts 2.0 Band Neutrophils # 1.2 Lymphocytes # (Manual) 2.4 Monocytes # (Manual) 0.9 Eosinophils # (Manual) 0.3 Basophils # (Manual) 0 Nucleated RBCs # 0 K/uL Med Orders - Current: Current Medications Sodium Chloride (Normal Saline) 1,000 mls @ 125 mls/hr IV ASDIRECTED [facility] Last Admin: 10/08/16 06:26 Dose: 125 mls/hr Piperacillin Sod/Tazobactam (Sod 3.375 gm/ Sodium Chloride) 50 mls @ 100 mls/ hr IV Q6H [facility] Last Infusion: 10/08/16 06:05 Dose: Infused Morphine Sulfate (Morphine) 2 mg IVPUSH Q2H PRN PRN Reason: Pain (severe 7-10) Last Admin: 10/06/16 23:10 Dose: 2 mg Canasa (Mesalamine (Suppository) 1000mg) 1 each .XX BEDTIME [facility] Last Admin: 10/07/16 22:07 Dose: 1 each Ondansetron HCl (Zofran) 4 mg IVPUSH Q4H PRN PRN Reason: Nausea Last Admin: 10/06/16 20:37 Dose: 4 mg Oxycodone HCl (Oxycodone) 10 mg PO Q4H PRN PRN Reason: Pain Last Admin: 10/07/16 22:04 Dose: 10 mg Discontinued Medications Bisacodyl (Dulcolax) 20 mg PO ONETIME ONE Stop: 10/08/16 13:01 Bisacodyl (Dulcolax) 20 mg PO ONETIME ONE Stop: 10/07/16 13:31 Last Admin: 10/07/16 13:42 Dose: 20 mg Sodium Chloride (Normal Saline) 1,000 mls @ 999 mls/hr IV STAT ONE Stop: 10/06/16 12:41 Last Admin: 10/06/16 12:15 Dose: 999 mls/hr Iopamidol (Isovue Multipack-370 (76%)) 100 ml IVPUSH ONETIME STA Stop: 10/06/16 13:20 Last Admin: 10/06/16 13:20 Dose: 100 ml Mesalamine (Rowasa) 4 gm RECTAL BEDTIME [facility] Ondansetron HCl (Zofran) 8 mg IVPUSH ONETIME ONE Stop: 10/06/16 11:42 Last Admin: 10/06/16 12:16 Dose: 8 mg Oxycodone HCl (Oxycodone) 5 mg PO Q4H PRN PRN Reason: Pain Last Admin: 10/06/16 23:07 Dose: 5 mg Canasa (Mesalamine (Suppository) 1000mg) 1 each RECTAL BEDTIME [facility] Last Admin: 10/06/16 21:25 Dose: 1 each Polyethylene Glycol (Miralax) 119 gm PO ONETIME ONE Stop: 10/07/16 18:01 Last Admin: 10/07/16 17:34 Dose: 119 gm Polyethylene Glycol (Miralax) 119 gm PO ONETIME ONE Stop: 10/08/16 15:01 - Exam General: alert, oriented, cooperative, no acute distress Neck: supple Lungs: Clear to auscultation, Normal respiratory effort Cardiovascular: Regular Rate, Regular Rhythm Abdomen: bowel sounds present, soft, no distension, tenderness (lower abdomen) Extremities: no edema, normal pulses Psy/Mental Status: alert, normal affect, normal mood - Problem List & Annotations (1) Rectal bleed SNOMED Code(s): 52715363 Code(s): K62.5 - HEMORRHAGE OF ANUS AND RECTUM Status: Acute Current Visit: Yes (2) Proctitis SNOMED Code(s): 1306374 Code(s): K62.89 - OTHER SPECIFIED DISEASES OF ANUS AND RECTUM Status: Acute Current Visit: Yes - Problem List Review Problem List Initiated/Reviewed/Updated: Yes - My Orders Last 24 Hours: My Active Orders 10/07/16 09:10 Non-Formulary Medication [NF Drug] 1 each .XX BEDTIME 10/07/16 Lunch NPO After Midnight [Nothing per Oral After Midnight Diet] [DIET] 10/09/16 05:11 CBC WITH AUTO DIFF [HEME] AM - Plan Plan:: This 31 year old male admitted with rectal bleeding and pain 1. Rectal bleeding and proctitis: Colonoscopy today. Possible discharge today after colonoscopy. Would like follow up with GI in [place] due to home being there. Will make sure reports are sent Gisselle. No longer having bloody bms, they are clear to green tinged. VTE prophylaxis: SCDs Dispo: Later today
[2016-10-08] MEDS: Morphine 2 MG/ML Syringe IVPUSH PRN (09:31)
[2016-10-08] MEDS ORDERED: Lidocaine 2% 5 ML SDV ONE (11:13)
[2016-10-08] MEDS ORDERED: Midazolam 1 MG/ML 2 ML SDV ONE (11:13)
[2016-10-08] MEDS ORDERED: fentaNYL 100 MCG/2 ML SDV ONE (11:13)
[2016-10-08] MEDS ORDERED: Propofol 200 MG/20 ML SDV ONE (11:13)
[2016-10-08] MEDS ORDERED: Bisacodyl 5 MG Tab PO ONE (13:00)
[2016-10-08] MEDS ORDERED: fentaNYL 100 MCG/2 ML SDV IVPUSH PRN (14:10)
[2016-10-08] MEDS ORDERED: HYDROmorphone 2 MG/ML Syringe IVPUSH ONE (14:15)
--- NOTE | 2016-10-08 14:25 | PCM.POSTAN ---
POST ANESTHESIA ASSESSMENT - MENTAL STATUS Mental Status: alert, oriented - RESPIRATORY Respiratory Status: respiratory rate WNL, airway patent, O2 saturation stable - CARDIOVASCULAR CV Status: pulse rate WNL, blood pressure stable - GASTROINTESTINAL GI Status: no symptoms - POST OP HYDRATION Hydration Status: adequate & stable
[2016-10-08] MEDS ORDERED: Polyethylene Glycol 3350 Powder 17 GM Packet PO ONE (15:00)
[2016-10-08] MEDS: oxyCODONE 5 MG Tab PO PRN (16:05)
--- NOTE | 2016-10-08 16:07 | PCM.DCSUM1 ---
Discharge Summary - Hospital Course Brief History: This 31 year old otherwise helathy male, presented to the ED with complaints of lower abdominal and rectal pain with bloody stools. He reports on Tuesday evening he ate [employer] around 7pm and by 9 pm he had lower abdominal pain and diarrhea. He reports this continued and progressively worsened until today when the bloody stools started. He feels like he constantly needing to have BMs and feels as though his anus and rectum are very swollen. he has no relieving or aggravating factors. He denies recent bowel habit changes. He denies inserting any foreign objects into his rectum. No family history of rectal or colon cancers that is he aware of, no history of IBS , IBS diseases either. He has never had this issue before. He denies chest pain , SOB or palpitations, no urinary symptoms or fevers at home. He does heavily binge drink on weekends, anywhere from 18-25 beers daily. He smokes 1 ppk and denies recreational drug use. He has not recently been outside of the traveling, no antibiotics use and no questionable food ingested. In the ED, WBC 11,440 Hgb 16.9, Na 133, VS stable HR 80-90 BP 120-140/50-80. Campylobacter negative, cdiff pending. CT reported possible mild rectal wall thickening with trace free pelvic fluid, otherwise no other acute findings with the abdomen or pelvis. - Discharge Data Discharge Date: 10/08/16 Discharge Disposition: Home, Self-Care 01 Condition: Good - Discharge Diagnosis/Problem(s) (1) Rectal bleed SNOMED Code(s): 65700428 ICD Code: K62.5 - HEMORRHAGE OF ANUS AND RECTUM Status: Acute Current Visit: Yes (2) Proctitis SNOMED Code(s): 4084938 ICD Code: K62.89 - OTHER SPECIFIED DISEASES OF ANUS AND RECTUM Status: Acute Current Visit: Yes - Patient Instructions Diet: Regular Diet as Tolerated Activity: As Tolerated Driving: Do Not Drive Showering/Bathing: May Shower Notify Provider of: Fever, Increased Pain, Swelling and Redness, Drainage, Nausea and/or Vomiting - Discharge Plan Prescriptions/Med Rec: Ciprofloxacin HCl [Cipro] 500 mg PO BID #14 tablet Hydrocortisone/Pramoxine [Proctofoam-Hc 1%-1% Foam] 10 gm RC TID #1 bottle Mesalamine 1,600 mg PO TID #126 tablet. metroNIDAZOLE [Flagyl] 500 mg PO Q8H #21 tablet oxyCODONE 5 mg PO Q6H PRN #10 tablet PRN Reason: Pain predniSONE 20 mg PO WITHBREAKFAST #10 tablet Home Medications: Home Meds Ciprofloxacin HCl [Cipro] 500 mg PO BID #14 tablet 10/08/16 [Rx] Hydrocortisone/Pramoxine [Proctofoam-Hc 1%-1% Foam] 10 gm RC TID #1 bottle 10/08 [Rx] Mesalamine 1,600 mg PO TID #126 tablet. 10/08/16 [Rx] metroNIDAZOLE [Flagyl] 500 mg PO Q8H #21 tablet 10/08/16 [Rx] oxyCODONE 5 mg PO Q6H PRN #10 tablet 10/08/16 [Rx] predniSONE 20 mg PO WITHBREAKFAST #10 tablet 10/08/16 [Rx] Forms: ED Department Discharge - Discharge Summary/Plan Comment DC Time >30 min.: No Discharge Summary/Plan Comment: Discharge Diagnoses Ulcerative colitis?- biopsies pending Proctitis rectal bleeding-resolved Gavin was admitted and treated with IVFs and antibiotics. Dr. Kruger, general surgery was consulted regarding thicken rectum noted on CT. Her recommendations were to watch overnight and monitor Hgb. If stools and bleeding did not improve she would perform sigmoidoscopy. Overnight, he continued to have bleeding and frequent stools, almost every 1 hr. We started Mesalamine suppositories, which helped slightly. He was prepped the following day for inpatient sigmoidoscopy. Bleeding did stop after prep. Please see procedure report. Suspected ulcerative colitis noted. Dr. Kruger's recommendations were to continue Cipro and Flagyl for 1 week, Proctofoam 3-4 times daily, Mesalamine orally for a couple weeks and Prednisone burst (40 mg daily x5 days). He has been up ambulating and tolerating diet after endoscopy procedure and is eager for discharge home, still having some loose stools but not has frequent, no bleeding. abdominal pain is well controlled. Approximately 15 minutes was spent with him talking about diagnosis as well as smoking cessation and limiting alcohol consumption. Encouraged NO alcohol while taking Flagyl. He verbalized understanding but at this time he expressed wishes to continue smoking. I will arrange follow up with GI specialist in [place], upon his request since it is near home ([place]). He is to return to ED or clinic if he should have any concerns. Hgb stable at time of discharge, 13.9. - General Info Date of Service: 10/08/16 Subjective Update: Alert and oriented after returning from PACU. He is tolerating diet and is asking to be discharged home soon. He has been up ambulating and voided. Abdominal pain is 2/10 right now. Functional Status: Reports: pain controlled, tolerating diet, ambulating, urinating - Review of Systems General: Reports: No Symptoms. Denies: Fever Cardiovascular: Reports: No Symptoms. Denies: Chest Pain Gastrointestinal: Reports: No symptoms. Denies: Abdominal pain, Nausea, Vomiting Musculoskeletal: Reports: no symptoms Skin: Reports: no symptoms Neurological: Reports: No Symptoms Psychiatric: Reports: no symptoms - Patient Data Vitals - Most Recent: Last Vital Signs Temp 98.5 F 10/08/16 13:00 Pulse 69 10/08/16 14:20 Resp 13 10/08/16 14:20 BP 102/50 L 10/08/16 14:20 Pulse Ox 98 10/08/16 14:20 Weight - Most Recent: 69.57 kg I&O - Last 24 hours: Intake & Output 10/08/16 10/08/16 10/08/16 06:59 14:59 22:59 Intake Total 550 300 Output Total 700 Balance -150 300 Lab Results - Last 24 hrs: Laboratory Results - last 24 hr 10/08/16 Range/Units 04:49 WBC 6.80 (4.0-11.0) K/uL RBC 4.76 (4.50-5.90) M/uL Hgb 13.9 (13.0-17.0) g/dL Hct 41.2 (38.0-50.0) % MCV 86.6 (80.0-98.0) fL MCH 29.2 (27.0-32.0) pg MCHC 33.7 (31.0-37.0) g/dL RDW Std Deviation 41.8 (28.0-62.0) fl RDW Coeff of Saad 13 (11.0-15.0) % Plt Count 181 (150-400) K/uL MPV 10.90 (7.40-12.00) fL Add Manual Diff YES Neutrophils % (Manual) 29 L (48.0-80.0) % Band Neutrophils % 18 % Lymphocytes % (Manual) 35 (16.0-40.0) % Monocytes % (Manual) 13 (0.0-15.0) % Eosinophils % (Manual) 4 (0.0-7.0) % Basophils % (Manual) 1 (0.0-1.5) % Nucleated RBC % 0.0 /100WBC Absolute Seg Neuts 2.0 Band Neutrophils # 1.2 Lymphocytes # (Manual) 2.4 Monocytes # (Manual) 0.9 Eosinophils # (Manual) 0.3 Basophils # (Manual) 0 Nucleated RBCs # 0 K/uL Med Orders - Current: Current Medications Fentanyl (Sublimaze) 50 mcg IVPUSH Q5M PRN PRN Reason: Pain (severe 7-10) Stop: 10/09/16 14:10 Sodium Chloride (Normal Saline) 1,000 mls @ 125 mls/hr IV ASDIRECTED [facility] Last Admin: 10/08/16 06:26 Dose: 125 mls/hr Piperacillin Sod/Tazobactam (Sod 3.375 gm/ Sodium Chloride) 50 mls @ 100 mls/ hr IV Q6H [facility] Last Admin: 10/08/16 10:43 Dose: 100 mls/hr Morphine Sulfate (Morphine) 2 mg IVPUSH Q2H PRN PRN Reason: Pain (severe 7-10) Last Admin: 10/08/16 09:31 Dose: 2 mg Canasa (Mesalamine (Suppository) 1000mg) 1 each .XX BEDTIME [facility] Last Admin: 10/07/16 22:07 Dose: 1 each Ondansetron HCl (Zofran) 4 mg IVPUSH Q4H PRN PRN Reason: Nausea Last Admin: 10/06/16 20:37 Dose: 4 mg Oxycodone HCl (Oxycodone) 10 mg PO Q4H PRN PRN Reason: Pain Last Admin: 10/07/16 22:04 Dose: 10 mg Discontinued Medications Bisacodyl (Dulcolax) 20 mg PO ONETIME ONE Stop: 10/08/16 13:01 Bisacodyl (Dulcolax) 20 mg PO ONETIME ONE Stop: 10/07/16 13:31 Last Admin: 10/07/16 13:42 Dose: 20 mg Fentanyl (Sublimaze) Confirm Administered Dose 100 mcg .ROUTE .STK-MED ONE Stop: 10/08/16 11:14 Hydromorphone HCl (Dilaudid) 0 mg IVPUSH ONETIME ONE Stop: 10/08/16 14:16 Sodium Chloride (Normal Saline) 1,000 mls @ 999 mls/hr IV STAT ONE Stop: 10/06/16 12:41 Last Admin: 10/06/16 12:15 Dose: 999 mls/hr Iopamidol (Isovue Multipack-370 (76%)) 100 ml IVPUSH ONETIME STA Stop: 10/06/16 13:20 Last Admin: 10/06/16 13:20 Dose: 100 ml Lidocaine (Xylocaine-Mpf 2%) Confirm Administered Dose 10 ml .ROUTE .STK-MED ONE Stop: 10/08/16 11:14 Mesalamine (Rowasa) 4 gm RECTAL BEDTIME [facility] Midazolam HCl (Versed 1 Mg/Ml) Confirm Administered Dose 2 mg .ROUTE .STK-MED ONE Stop: 10/08/16 11:14 Ondansetron HCl (Zofran) 8 mg IVPUSH ONETIME ONE Stop: 10/06/16 11:42 Last Admin: 10/06/16 12:16 Dose: 8 mg Oxycodone HCl (Oxycodone) 5 mg PO Q4H PRN PRN Reason: Pain Last Admin: 10/06/16 23:07 Dose: 5 mg Canasa (Mesalamine (Suppository) 1000mg) 1 each RECTAL BEDTIME [facility] Last Admin: 10/06/16 21:25 Dose: 1 each Polyethylene Glycol (Miralax) 119 gm PO ONETIME ONE Stop: 10/07/16 18:01 Last Admin: 10/07/16 17:34 Dose: 119 gm Polyethylene Glycol (Miralax) 119 gm PO ONETIME ONE Stop: 10/08/16 15:01 Propofol (Diprivan 20 Ml) Confirm Administered Dose 400 mg .ROUTE .STK-MED ONE Stop: 10/08/16 11:14 - Exam General: Reports: alert, oriented, cooperative, no acute distress Lungs: Reports: Clear to auscultation, Normal respiratory effort Cardiovascular: Reports: Regular Rate, Regular Rhythm Abdomen: Reports: bowel sounds present, soft, no distension, tenderness (scant to lower abdomen) Extremities: Reports: no edema, normal pulses Psy/Mental Status: Reports: alert, normal affect, normal mood *Q Meaningful Use (DIS) - VTE *Q VTE Criteria *Q: - Stroke *Q Stroke Criteria *Q: - AMI *Q AMI Criteria *Q:
--- NOTE | 2016-10-08 16:25 | PCM.SN ---
- Free Text/Narrative Note: Patient underwent a flexible sigmoidoscopy today. He has clinical evidence of stein colitis on exam. Biopsies were taken. This is suspicious for an inflammatory bowel disease. Will treat him as such with oral steroid burst, rectal steroid enema, Cipro/flagyl and 5-ASA oral tabs. The patient will then need to follow up with a [employer] Machine Operator for further management.
--- NOTE | 2016-10-08 16:26 | PCM48HPAN ---
Post Anesthesia Note - EVALUATION WITHIN 48HRS OF ANESTHETIC Vital Signs in Normal Range: Yes Patient Participated in Evaluation: Yes Respiratory Function Stable: Yes Airway Patent: Yes Cardiovascular Function Stable: Yes Hydration Status Stable: Yes Pain Control Satisfactory: Yes Nausea and Vomiting Control Satisfactory: Yes Mental Status Recovered: Yes
[2016-10-08 18:47] VITALS: BP 122/56
--- NOTE | 2016-10-08 20:50 | OR ---
SURGEON: MELANI KRUGER MD DATE OF PROCEDURE: 10/06/2016 PREOPERATIVE DIAGNOSIS: Proctitis. POSTOPERATIVE DIAGNOSES: Confluent inflammation of the sigmoid and rectum. PROCEDURE PERFORMED: Diagnostic flexible sigmoidoscopy. ENDOSCOPIST: Dr. Melani Kruger. INSTRUMENT USED: Olympus colonoscope. ANESTHESIA: MAC. EXTENT OF EXAM: To the midportion of the sigmoid colon. PREPARATION: Good. LIMITATIONS: None. INDICATION: The patient is a 31-year-old male, who presented with tenesmus and was found to have proctitis based on physical exam and CT findings. The patient has been given 5-ASA retention enemas and broad-spectrum antibiotics for the last two days and his symptoms have improved. He is now resuscitated and all of his stool cultures have come back negative. Given the concern for possible inflammatory bowel disease, the decision was made to perform a diagnostic flexible sigmoidoscopy at this point in time. The patient and I discussed the procedure as well as the risks including bleeding, infection, or damage to surrounding structures, including perforation. The patient verbalized understanding and wished to proceed. NARRATIVE: The patient was brought into the OR, placed in the OR cart in left lateral decubitus position. A time-out was completed verifying the patient's name, age, date of , allergies, and procedure to be performed. Monitored anesthesia care was induced and oxygen was provided via face mask throughout the procedure. After adequate sedation was achieved, a digital rectal exam was performed. This exam was within normal limits. There was no bloody stool on my finger as there have been two days prior. A well lubricated colonoscope was inserted into the rectum. I immediately noticed confluence inflammation, erythema, and ulceration of the wall of the rectum. The scope was gently guided under direct visualization to the midportion of the sigmoid colon. This inflammation and ulceration extended throughout the colon at least to this level. Biopsies were taken in four quadrants of the sigmoid colon and sent that to pathology. The scope was brought into the rectum and two biopsies were taken in the rectum and sent to pathology as well. The rectum appeared more inflamed than the remainder of the bowel and so I did not take more aggressive biopsies. The intraoperative air that I placed was suctioned out and removed the scope from the patient. Given the acute nature of the disease, I tried to limit the amount of time and manipulation, while performing this exam. The patient tolerated the procedure well and was transferred to the recovery room in stable condition. ENDOSCOPIC DIAGNOSIS: Pancolitis. RECOMMENDATION: The patient will be started on steroid therapy as well as oral 5-ASA medication. We will start rectal steroid enemas and followup with a radio sportscaster as an outpatient. SADIE KELLEY /[id number]
--- NOTE | 2016-10-11 10:47 | PCM.SN ---
- Free Text/Narrative Note: Notified patient of Salmonella stool results. He will continue taking Cipro and Fagyl for a total of 14 days, new prescription sent for this. He was instructed to discontinue Pentasa and procto-foam. He was encouraged to continue with follow up with GI in [place], which appointment is already scheduled and with Mariana Merchant NP. Symptoms stable, less diarrhea. He was encouraged to return to ED or nearest clinic if concerns arose. Encouraged hydration.
== END 2016-10-08 17:55 | disposition home or self-care (01) ==
LOC: MW.ED 11:25 → MW.MS 15:35
PROVIDERS: ADMIT Internal Medicine; ATTEND Internal Medicine
PROC: 0DBN8ZX Excision of Sigmoid Colon, Via Natural or Artificial Opening Endoscopic, Diagnostic (ICD-10-PCS; principal; 2016-10-06)
DX: K51.00 Ulcerative (chronic) pancolitis without complications (principal); K62.89 Other specified diseases of anus and rectum; F17.210 Nicotine dependence, cigarettes, uncomplicated; Z98.890 Other specified postprocedural states
CPT/HCPCS: 36415; 45331; 74177; 80048; 80053; 82150; 82272; 83690; 85025; 85652; 86140; 86850; 86900; 86901; 87046; 87077; 87186; 87324; 87899; 88305; 96361; 96365; 96366; 96375; 96376; 99285; A9270; G0378; J2250; J2270; J2405; J2543; J3010; J7040; J7050; Q9967; 96374; 99284; J2704